=== PATIENT | female | born 1995 | race Caucasian/White ===

== ENCOUNTER 2017-06-21 11:10 | Emergency (ER) | payer BC ==
[2017-06-21 13:29] VITALS: BP 124/75
--- NOTE | 2017-06-21 13:45 | UC ---
Hand/Wrist HPI - HPI Summary HPI Summary: 2 nights ago pt fell down onto bottom. R hand was in a fist, fell awkwardly with hand underneath her. Now lots of pain on side of hand by 5th MC, bruising in palm, pain on ulnar side of wrist. - History Of Current Complaint Chief Complaint: UCUpperExtremity Stated Complaint: RIGHT HAND INJURY Time Seen by Provider: 06/21/17 13:33 Hx Obtained From: Patient Hx Last Menstrual Period: 06/08/17 ?: No Onset/Duration: Sudden Onset Severity Initially: Moderate Severity Currently: Moderate Character Of Pain: Dull, Aching Aggravating Factor(s): Movement Alleviating Factor(s): Rest, Ice - Allergies/Home Medications Allergies/Adverse Reactions: Allergies Allergy/AdvReac Type Severity Reaction Status Date / Time Amoxicillin [From Augmentin] Allergy Vomiting Verified 06/21/17 13:30 Clavulanic Acid Allergy Vomiting Verified 06/21/17 13:30 [From Augmentin] Home Medications: Home Medications Ibuprofen TAB* [Motrin TAB* 400 MG] 400 mg PO Q6H PRN 06/21/17 [History Confirmed 06/21/17] PMH/Surg Hx/FS Hx/Imm Hx Previously Healthy: Yes - Surgical History Surgical History: Yes Surgery Procedure, Year, and Place: tailbone, breast cyst - Family History Known Family History: Positive: Hypertension - Social History Occupation: Student Lives: Alone Alcohol Use: Weekly Alcohol Amount: 6-10 Substance Use Type: None Smoking Status (MU): Never Smoked Tobacco Review of Systems Constitutional: Negative Skin: Negative Eyes: Negative ENT: Negative Respiratory: Negative Cardiovascular: Negative Gastrointestinal: Negative Genitourinary: Negative Motor: Negative Neurovascular: Negative Musculoskeletal: Arthralgia, Decreased ROM Neurological: Negative Psychological: Negative Is Patient Immunocompromised?: No All Other Systems Reviewed And Are Negative: Yes Physical Exam Triage Information Reviewed: Yes Appearance: Well-Appearing, Pain Distress - mild with movement Vital Signs: Initial Vital Signs Temp 98.2 F 06/21/17 13:23 Pulse 73 06/21/17 13:23 Resp 18 06/21/17 13:23 BP 124/75 06/21/17 13:23 Vital Signs Reviewed: Yes Eye Exam: Normal Eyes: Positive: Conjunctiva Clear ENT Exam: Normal ENT: Positive: Normal ENT inspection, Hearing grossly normal, Pharynx normal, TMs normal Dental Exam: Normal Neck exam: Normal Respiratory Exam: Normal Respiratory: Positive: Chest non-tender, Lungs clear, Normal breath sounds, No respiratory distress, No accessory muscle use Cardiovascular Exam: Normal Cardiovascular: Positive: RRR, No Murmur Musculoskeletal Exam: Other - tender ove R 5th MC, R ulnar wrist, significant swelling and bruising in R hand Musculoskeletal: Positive: ROM Limited @ - R wrist Neurological Exam: Normal Neurological: Positive: Alert Psychological Exam: Normal Skin Exam: Normal Procedures - Splinting Location: R wrist/hand Hand-Made Type: orthoglass Splint: ulnar gutter Pre-Proc Neuro Vasc Exam: normal Post-Proc Neuro Vasc Exam: normal Hand/Wrist Course/Dx - Differential Dx/Diagnosis Provider Diagnoses: R hand contusion/hematoma. R wrist soft tissue injury. Suspect occult fracture R hand/wrist Discharge - Discharge Plan Condition: Stable Disposition: HOME Patient Education Materials: Wrist Sprain (ED), Suspected Fracture (ED) Referrals: Lula Funes MD [Medical Doctor] - Additional Instructions: Call [phone] to arrange for an appointment in [place]; if you are willing and able to go to [place], you can call the main number listed. For now, I recommend you keep the splint on all the time -- do not get it wet, do not remove for sleeping. Use elevation and ibuprofen (400-600mg 3 times per day) as needed for pain.
--- NOTE | 2017-06-21 13:55 | RAD ---
HISTORY: Right hand trauma COMPARISONS: None VIEWS: 4, Frontal, lateral, and oblique views of the right hand FINDINGS: BONE DENSITY: Normal. BONES: There is no displaced fracture. JOINTS: There is no arthropathy. ALIGNMENT: There is no dislocation. SOFT TISSUES: Unremarkable. OTHER FINDINGS: None. IMPRESSION: NO ACUTE OSSEOUS INJURY. IF SYMPTOMS PERSIST, RECOMMEND REPEAT IMAGING.
== END 2017-06-21 14:24 | disposition home or self-care (01) ==
LOC: UCCORT 11:10
DX: S60.221A Contusion of right hand, initial encounter (principal); S69.91XA Unspecified injury of right wrist, hand and finger(s), initial encounter; W19.XXXA Unspecified fall, initial encounter; Y93.9 Activity, unspecified; Y92.9 Unspecified place or not applicable; Z88.1 Allergy status to other antibiotic agents
CPT/HCPCS: 26755; 99201; G0463

== ENCOUNTER 2017-06-28 11:36 | Emergency (ER) | payer BC ==
--- NOTE | 2017-06-28 12:09 | UC ---
HPI Febrile Illness - HPI Summary HPI Summary: 22 year old female presents with complains of severe rlq pain. - History of Current Complaint Time Seen by Provider: 06/28/17 12:08 Hx Obtained From: Patient Hx Last Menstrual Period: 06/08/17 Onset/Duration: Started Hours Ago Timing: Constant Initial Severity: Moderate Current Severity: Moderate - Allergy/Home Medications Allergies/Adverse Reactions: Allergies Allergy/AdvReac Type Severity Reaction Status Date / Time Amoxicillin [From Augmentin] Allergy Vomiting Verified 06/28/17 12:14 Clavulanic Acid Allergy Vomiting Verified 06/28/17 12:14 [From Augmentin] PMH/Surg Hx/FS Hx/Imm Hx Previously Healthy: Yes - Surgical History Surgical History: Yes Surgery Procedure, Year, and Place: tailbone, breast cyst - Family History Known Family History: Positive: Hypertension - Social History Alcohol Use: Weekly Alcohol Amount: 6-10 Substance Use Type: None Smoking Status (MU): Never Smoked Tobacco Review of Systems Constitutional: Negative Skin: Negative Eyes: Negative ENT: Negative Respiratory: Negative Cardiovascular: Negative Gastrointestinal: Abdominal Pain - rlq pain Genitourinary: Negative Motor: Negative Neurovascular: Negative Musculoskeletal: Negative Neurological: Negative Psychological: Negative All Other Systems Reviewed And Are Negative: Yes Physical Exam Triage Information Reviewed: Yes Vital Signs Reviewed: Yes Eye Exam: Normal ENT Exam: Normal Dental Exam: Normal Neck exam: Normal Neck: Positive: 1 Respiratory Exam: Normal Cardiovascular Exam: Normal Abdominal Exam: Normal Abdomen Description: Positive: Other: - rlq pain Musculoskeletal Exam: Normal Neurological Exam: Normal Psychological Exam: Normal Skin Exam: Normal Course/Dx - Diagnoses Clinic Provider Diagnoses: rlq pain Discharge - Discharge Plan Condition: Stable Disposition: OTHER Discharge Disposition Comment: patient suggested to go to the er. Patient Education Materials: Abdominal Pain (ED) Forms: *School Release Referrals: No Primary Care Phys,NOPCP [Primary Care Provider] - Additional Instructions: patient suggested to go to the er for severe rlq pain
[2017-06-28 12:14] VITALS: BP 135/76
== END 2017-06-28 12:31 ==
LOC: UCCORT 11:36
DX: R10.31 Right lower quadrant pain (principal); Z88.1 Allergy status to other antibiotic agents
CPT/HCPCS: 99212; G0463

== ENCOUNTER 2017-11-27 13:05 | Emergency (ER) | payer BC ==
[2017-11-27 13:47] VITALS: BP 127/81
--- NOTE | 2017-11-27 14:06 | UC ---
UC General HPI - HPI Summary HPI Summary: pt is c/o a 1.5 days hx fever to 101.7, chills and cough. admits [facility]. roommate coming home today after being admitted for pneumonia. denies sob and wheezing. notes throat a little raspy but not sore. 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 & Symptoms: Positive: Cough, Fever - Allergy/Home Medications Allergies/Adverse Reactions: Allergies Allergy/AdvReac Type Severity Reaction Status Date / Time amoxicillin [From Augmentin] Allergy Vomiting Verified 11/27/17 13:48 clavulanic acid Allergy Vomiting Verified 11/27/17 13:48 [From Augmentin] PMH/Surg Hx/FS Hx/Imm Hx Previously Healthy: Yes - Surgical History Surgical History: Yes Surgery Procedure, Year, and Place: tailbone, breast cyst - Family History Known Family History: Positive: Hypertension - Social History Occupation: Student Lives: Dormitory/Roommates Alcohol Use: Weekly Alcohol Amount: 6-10 Substance Use Type: None Smoking Status (MU): Never Smoked Tobacco - Immunization History Most Recent Influenza Vaccination: CURRENT FOR Vaccination Up to Date: Yes Review of Systems Constitutional: Fever, Chills Skin: Negative Eyes: Negative ENT: Negative Respiratory: Cough Cardiovascular: Negative Gastrointestinal: Negative Genitourinary: Negative Motor: Negative Neurovascular: Negative Musculoskeletal: Myalgia Neurological: Negative Psychological: Negative Is Patient Immunocompromised?: No All Other Systems Reviewed And Are Negative: Yes Physical Exam Triage Information Reviewed: Yes Appearance: Well-Appearing Vital Signs: Initial Vital Signs Temp 99.9 F 11/27/17 13:37 Pulse 107 11/27/17 13:37 Resp 18 11/27/17 13:37 BP 127/81 11/27/17 13:37 Pulse Ox 99 11/27/17 13:37 Vital Signs Reviewed: Yes Eyes: Positive: Conjunctiva Clear ENT: Positive: Pharynx normal, TMs normal. Negative: Nasal congestion, Nasal drainage Neck: Positive: Supple, Nontender, No Lymphadenopathy Respiratory: Positive: Lungs clear, Normal breath sounds, No respiratory distress Cardiovascular: Positive: No Murmur, Brisk Capillary Refill, Tachycardia Abdomen Description: Positive: Nontender, No Organomegaly, Soft. Negative: CVA Tenderness (R), CVA Tenderness (L), Distended, Guarding Bowel Sounds: Positive: Present Musculoskeletal: Positive: ROM Intact Neurological: Positive: Alert Psychological: Positive: Age Appropriate Behavior Skin Exam: Normal Diagnostics - Laboratory Diagnostic Studies Completed/Ordered: rapid flu=neg. u/a=trace ketones, blood and leukocytes. 1+ protein, urobilogen and bilirubin. culture sent. - Radiology No standard instances Xray Interpretation: No Acute Changes Radiology Interpretation Completed By: Radiologist Course/Dx - Course Course Of Treatment: non toxic, not hypoxic, lungs clear and cxr=neg thus no concern for pneumonia. u/a=is non specific. culture sent but pt has no urinary s /s's. abdominal exam is benign. we still have influenza in this community and pt s/s's are GÉNESIS thus will tx Tamiflu and close f/u for a recheck. - Differential Dx - Multi-Symptom Provider Diagnoses: Influenza like illness Discharge - Sign-Out/Discharge Documenting (check all that apply): Discharge - Discharge Plan Condition: Stable Disposition: HOME Prescriptions: Oseltamivir CAP* [Tamiflu CAP*] 75 mg PO BID #10 cap Patient Education Materials: Fever in Adults (ED), Influenza (DC) Forms: *School Release Additional Instructions: FOLLOW UP [facility] ON WEDNESDAY FOR A RECHECK. GO TO ER FOR ANY WORSENING. - Billing Disposition and Condition Condition: STABLE Disposition: HOME
--- NOTE | 2017-11-27 14:09 | RAD ---
Indication: Fever, cough. 2 views of the chest including dual energy PA views demonstrates no mediastinal shift. Heart is of normal size and configuration. Lung jonas are clear. IMPRESSION: No active pulmonary disease is noted.
== END 2017-11-27 14:58 | disposition home or self-care (01) ==
LOC: UCCORT 13:05
DX: J11.1 Influenza due to unidentified influenza virus with other respiratory manifestations (principal); Z88.3 Allergy status to other anti-infective agents
CPT/HCPCS: 71046; 81003; 87086; 87502; 99212; G0463

== ENCOUNTER 2018-10-17 11:00 | Emergency (ER) | payer BC ==
[2018-10-17 12:47] VITALS: BP 118/64
--- NOTE | 2018-10-17 13:00 | UC ---
UC General HPI - HPI Summary HPI Summary: day 3 of sore throat, headache, bodyches and subjective fever. - History of Current Complaint Chief Complaint: UCGeneralIllness Stated Complaint: FEVER HEADACHE SORE THROAT Time Seen by Provider: 10/17/18 12:38 Hx Obtained From: Patient Hx Last Menstrual Period: 10/11/18 Onset/Duration: Gradual Onset Timing: Constant Pain Intensity: 5 Associated Signs & Symptoms: Negative: Abdominal Pain, Diarrhea, Vomiting - Allergy/Home Medications Allergies/Adverse Reactions: Allergies Allergy/AdvReac Type Severity Reaction Status Date / Time clavulanic acid Allergy Vomiting Verified 10/17/18 12:43 [From Augmentin] Home Medications: Home Medications D-Methorphan/PE/Acetaminophen [Vicks Dayquil Cold & Flu] 2 cap PO Q6H PRN [History Confirmed 10/17/18] Ibuprofen TAB* [Advil TAB*] 600 mg PO Q6H PRN 10/17/18 [History Confirmed ] PMH/Surg Hx/FS Hx/Imm Hx Previously Healthy: Yes - Surgical History Surgical History: Yes Surgery Procedure, Year, and Place: tailbone, breast cyst - Family History Known Family History: Positive: Hypertension - Social History Occupation: Student Lives: Dormitory/Roommates Alcohol Use: Weekly Alcohol Amount: 6-10 Substance Use Type: None Smoking Status (MU): Never Smoked Tobacco - Immunization History Most Recent Influenza Vaccination: CURRENT FOR 2016/2017 Vaccination Up to Date: Yes Review of Systems All Other Systems Reviewed And Are Negative: Yes Constitutional: Positive: Fever, Chills ENT: Positive: Sore Throat Musculoskeletal: Positive: Myalgia Neurological: Positive: Headache Physical Exam Triage Information Reviewed: Yes Appearance: Well-Appearing Vital Signs: Initial Vital Signs Temp 98.5 F 10/17/18 12:41 Pulse 72 10/17/18 12:41 Resp 18 10/17/18 12:41 BP 118/64 10/17/18 12:41 Pulse Ox 100 10/17/18 12:41 Vital Signs Reviewed: Yes Eyes: Positive: Conjunctiva Clear ENT: Positive: Pharyngeal erythema, TMs normal, Uvula midline. Negative: Nasal congestion, Nasal drainage, Trismus, Muffled voice, Hoarse voice Neck: Positive: Supple, Nontender, Enlarged Nodes @ - peritonsilar Respiratory: Positive: Lungs clear, Normal breath sounds, No respiratory distress Cardiovascular: Positive: RRR, No Murmur Abdomen Description: Positive: Nontender, No Organomegaly, Soft Bowel Sounds: Positive: Present Musculoskeletal: Positive: ROM Intact Neurological: Positive: Alert Psychological: Positive: Age Appropriate Behavior Skin Exam: Normal Course/Dx - Course Course Of Treatment: rapid strep=neg. pt states hx neg rapid strep then + on recheck thus tc=pending. rapid flu=neg. i am going to tx for a presumtive bacterial pharyngitis while the culture is pending. - Diagnoses Provider Diagnosis: Pharyngitis Discharge - Sign-Out/Discharge Documenting (check all that apply): Patient Departure All imaging exams completed and their final reports reviewed: No Studies - Discharge Plan Condition: Stable Disposition: HOME Prescriptions: Penicillin VK 500 MG TAB(NF) [Penicillin VK 500 mg Tab] 500 mg PO BID 10 Days # 20 tab Patient Education Materials: Pharyngitis (ED) Forms: *School Release Referrals: RACHELLE RICHARDSON [Luis ABUSINESS, APPLICATION, OTHER] - 7 Days - Billing Disposition and Condition Condition: STABLE Disposition: Home - Attestation Statements Provider Attestation: I was available for consult. This patient was seen by the ROBERT. The patient was not presented to, seen by, or examined by me. -Dionte
[2018-10-17 13:40] LABS: Influenza A Molecular NEGATIVE (Negative); Influenza B Molecular NEGATIVE (Negative)
--- NOTE | 2018-10-18 13:42 | UC ---
- Progress Note Progress Note: pt called for an extension for out of class. note extended a second day Course/Dx - Diagnoses Provider Diagnoses: Pharyngitis Discharge - Sign-Out/Discharge Documenting (check all that apply): Patient Departure All imaging exams completed and their final reports reviewed: No Studies - Discharge Plan Condition: Stable Disposition: HOME Prescriptions: Penicillin VK 500 MG TAB(NF) [Penicillin VK 500 mg Tab] 500 mg PO BID 10 Days # 20 tab Patient Education Materials: Pharyngitis (ED) Forms: *School Release Referrals: RACHELLE RICHARDSON [Roxana.BUSINESS, APPLICATION, OTHER] - 7 Days - Billing Disposition and Condition Condition: STABLE Disposition: Home - Attestation Statements Provider Attestation: I was available for consult. This patient was seen by the ROBERT. The patient was not presented to, seen by, or examined by me. -Dionte
== END 2018-10-17 13:54 | disposition home or self-care (01) ==
LOC: UCCORT 11:00
DX: J02.9 Acute pharyngitis, unspecified (principal)
CPT/HCPCS: 87070; 87077; 87651; 99212; G0463

== ENCOUNTER 2018-10-19 09:03 | Emergency (ER) | payer BC ==
--- NOTE | 2018-10-19 10:30 | UC ---
Throat Pain/Nasal Valentin HPI - HPI Summary HPI Summary: Patient was diagnosed with group C strep. She was seen here on 10/17/2018 and started on penicillin. She states that she has continued to have some fevers and a mild sore throat however feels mildly better. She states she is unable to attend classes if she has a fever. - History of Current Complaint Stated Complaint: RECHECK,FEVER,ST,BODY ACHES Time Seen by Provider: 10/19/18 10:30 Hx Obtained From: Patient Hx Last Menstrual Period: 10/11/18 ?: No Onset/Duration: Gradual Onset Severity: Mild - Since feeling better however she's had a low-grade fever and states she can't classic she has a fever. Cough: None Associated Signs & Symptoms: Positive: Negative - Allergies/Home Medications Allergies/Adverse Reactions: Allergies Allergy/AdvReac Type Severity Reaction Status Date / Time clavulanic acid Allergy Vomiting Verified 10/19/18 10:22 [From Augmentin] Home Medications: Home Medications Dm/PE/Acetaminophen/Doxylamine [Vicks Nyquil Severe Cold] 1 liq PO PRN 10/19/18 [History] PMH/Surg Hx/FS Hx/Imm Hx Previously Healthy: Yes - Surgical History Surgical History: Yes Surgery Procedure, Year, and Place: tailbone, breast cyst - Family History Known Family History: Positive: Hypertension - Social History Occupation: Student Lives: Dormitory/Roommates Alcohol Use: Weekly Alcohol Amount: 6-10 Substance Use Type: None Smoking Status (MU): Never Smoked Tobacco - Immunization History Most Recent Influenza Vaccination: CURRENT FOR 2016/2017 Vaccination Up to Date: Yes Review of Systems All Other Systems Reviewed And Are Negative: Yes Constitutional: Positive: Fever - She states she's continued to have low-grade fever ever she is taking the penicillin. Skin: Positive: Negative Eyes: Positive: Negative ENT: Positive: Sore Throat - Continue his to have a mild sore throat Respiratory: Positive: Negative Cardiovascular: Positive: Negative Gastrointestinal: Positive: Negative Genitourinary: Positive: Negative Motor: Positive: Negative Neurovascular: Positive: Negative Musculoskeletal: Positive: Negative Neurological: Positive: Negative Psychological: Positive: Negative Is Patient Immunocompromised?: No Physical Exam Triage Information Reviewed: Yes Appearance: Well-Appearing, No Pain Distress, Well-Nourished Vital Signs Reviewed: Yes Eye Exam: Normal ENT: Positive: Pharyngeal erythema, Tonsillar exudate - Continues with right tonsillar exudate however minimal right pharyngeal erythema. Uvula is midline, no trismus., Uvula midline. Negative: Trismus Neck exam: Normal Neck: Positive: Supple, Nontender, No Lymphadenopathy Respiratory Exam: Normal Cardiovascular Exam: Normal Abdominal Exam: Normal Bowel Sounds: Positive: Present Musculoskeletal Exam: Normal Neurological Exam: Normal Psychological Exam: Normal Skin Exam: Normal Throat Pain/Nasal Course/Dx - Course Course Of Treatment: She has been comfortable here. She is taking the penicillin for group C strep. I believe she has improved and she mostly needed a note to return to class. She may follow-up at the [facility] if no improvement by Wednesday or if worsening symptoms. - Differential Dx/Diagnosis Differential Diagnosis/HQI/PQRI: Pharyngitis Provider Diagnosis: Strep pharyngitis Discharge - Sign-Out/Discharge Documenting (check all that apply): Patient Departure All imaging exams completed and their final reports reviewed: No Studies - Discharge Plan Condition: Fair Disposition: HOME Patient Education Materials: Strep Throat (DC) Forms: *School Release Referrals: No Primary Care Phys,NOPCP [Primary Care Provider] - RACHELLE RICHARDSON [, APPLICATION, OTHER] - Additional Instructions: Increase fluids, continue your antibiotic for the full course. Follow up at the [facility] on Wednesday if you continue to have fever. - Billing Disposition and Condition Condition: FAIR Disposition: Home
[2018-10-19 10:32] VITALS: BP 115/71
== END 2018-10-19 10:54 | disposition home or self-care (01) ==
LOC: UCCORT 09:03
DX: J02.0 Streptococcal pharyngitis (principal); Z88.0 Allergy status to penicillin
CPT/HCPCS: 99211; G0463